=== PATIENT | female | born 1995 | race Caucasian/White ===

== ENCOUNTER 2016-07-29 09:00 | Inpatient (IN) | payer SELFPAY ==
[~2016-07-29] VITALS: Ht 167.6 cm; Wt 92.0 kg
[2016-07-29 09:52] VITALS: Ht 167.6 cm; Wt 92.0 kg
[2016-07-29 09:53] VITALS: BP 121/72; PULSE 100; RESP 18
[2016-07-29] MEDS ORDERED: OXYTOCIN 30 UNITS/LR 500 ML IV PRN (10:00)
[2016-07-29] MEDS ORDERED: CARBOPROST 250 MCG INJ IM PRN (10:00)
[2016-07-29] MEDS ORDERED: MISOPROSTOL 200 MCG TAB PR PRN (10:00)
[2016-07-29] MEDS ORDERED: METHYLERGONOVINE 0.2 MG INJ IM PRN (10:00)
[2016-07-29] MEDS ORDERED: LIDOCAINE 1% (MPF) 30 ML INJ INJ PRN (10:00)
[2016-07-29] MEDS ORDERED: IBUPROFEN 600 MG TAB PO PRN (10:00)
[2016-07-29] MEDS ORDERED: BUTORPHANOL 2 MG INJ IV PRN ×2 (10:00)
[2016-07-29] MEDS ORDERED: PREN1TAB62 PO (10:02)
[2016-07-29 10:11] LABS: BASOPHILS % 0.4 % (0.0-2.0); EOSINOPHILS # 0.1 10^3/ul (0.0-0.5); EOSINOPHILS % 1.2 % (0.0-7.0); HEMATOCRIT 37.5 % (37.0-47.0); HEMOGLOBIN 12.9 g/dl (12.0-16.0); LYMPHOCYTES # 1.9 10^3/ul (0.8-2.9); LYMPHOCYTES % 19.3 % (15.0-51.0); MEAN CORPUSCULAR HEMOGLOBIN 33.1 pg (29.0-33.0); MEAN CORPUSCULAR HGB CONC 34.3 g/dl (32.0-37.0); MEAN CORPUSCULAR VOLUME 96.6 fl (82.0-101.0); MEAN PLATELET VOLUME 9.9 fl (7.4-10.4); MONOCYTE # 0.8 10^3/ul (0.3-0.9); MONOCYTES % 8.3 % (0.0-11.0); NEUTROPHIL # 7.1 10^3/ul (1.6-7.5); NEUTROPHILS % 70.8 % (39.0-77.0); PLATELET COUNT 165 10^3/UL (140-440); RED BLOOD COUNT 3.89 10^6/ul (4.20-5.40); RED CELL DISTRIBUTION WIDTH 12.7 % (11.5-14.5)
[2016-07-29 10:15] LABS: CONDITION 1
[2016-07-29 10:19] LABS: INR 0.9; PROTIME 12.1 Sec (12.2-14.2); PT RATIO 0.9
[2016-07-29 10:20] LABS: PARTIAL THROMBOPLASTIN TIME 26.2 Sec (25.0-35.0)
[2016-07-29] MEDS ORDERED: AMPICILLIN 2 GM/NS (PMX) 100 ML IVPB ONE (10:30)
[2016-07-29] MEDS ORDERED: AMPICILLIN 2 GM/NS (PMX) 100 ML ONE (10:42)
[2016-07-29] MEDS: LACTATED RINGER'S 1,000 ML IV SCH ×2 (10:46→23:25)
--- NOTE | 2016-07-29 11:43 | RADRPT ---
PROCEDURE: Real Time Sonogram. 07/29/2016 11:29 a.m. CLINICAL INDICATION: Late care. TECHNIQUE: This procedure was performed on a high-resolution real time Unit using a endovaginal pr obe. COMPARISON: No. FINDINGS: Presentation: Cephalic presentation. Cervical Length: Not measured.Placental Location: Anterior.Placental Previa: No. Body limb and cardiac motion: Yes.Heart rate: 136 beats per minute. The stomach, skull and ventricles are unremarkable. The other anatomy is not evaluated. sex: Amniotic fluid volume:Normal. Measured data: BPD:9.2 cm37 weeks 3 days HC:34.8 cm40 weeks 3 days AC:33.6 cm37 weeks 4 days FC:7.5 cm38 weeks 4 days AUA:38 weeks 4 daysplus or minus 2 weeks 5 days JENN (AUA):08/08/2016. Serial scan estimated menstrual age: Calculated. weight: 3293 g plus/minus 508 g 22% Endovaginal imaging utilized: Yes. . Additional findings: No. IMPRESSION: See above RPTAT:AAJJ Physician Dennise Date Time Electronically viewed and signed by Physician Dennise on 07/29/2016 11:43 JM/
[2016-07-29] MEDS ORDERED: LACTATED RINGER'S 1,000 ML IV PRN (12:00)
[2016-07-29] MEDS ORDERED: MISOPROSTOL 25 MCG CAPSULE PO STA (13:02)
[2016-07-29] MEDS: MISOPROSTOL 25 MCG CAPSULE PO SCH ×4 (14:21→22:13)
[2016-07-29] MEDS: AMPICILLIN 1 GM/NS (PMX) 50 ML IVPB SCH ×3 (15:36→21:00)
[2016-07-30] MEDS: AMPICILLIN 1 GM/NS (PMX) 50 ML IVPB SCH ×6 (00:42→23:04)
[2016-07-30] MEDS: LACTATED RINGER'S 1,000 ML IV SCH ×3 (01:54→15:08)
[2016-07-30] MEDS: MISOPROSTOL 25 MCG CAPSULE PO SCH ×4 (02:27→10:49)
--- NOTE | 2016-07-30 03:22 | HP ---
DATE OF ADMISSION: 07/29/2016 HISTORY OF PRESENT ILLNESS: Ms. Anish Riddle is a 20-year-old 1, para 0 , intrauterine at 40 weeks and 5 days gestational age, who was admitted yesterday for post-EDC induction. She is currently on Cytotec regimen for cervical ripening. She currently denies any vaginal bleeding or discharge. Her care took place initially in [place] where she transferred her care to [facility] at approximately 36 weeks' gestation. She was also treated with RhoGAM on 07/08/2016 secondary to Rh negative. By ultrasound that she had in the [place], the fetus has bilateral hydronephrosis where a evaluation will be called after delivery. PAST MEDICAL HISTORY: None. MEDICATIONS: vitamins. PAST SURGICAL HISTORY: None. OBSTETRIC HISTORY: Primigravid. GYNECOLOGIC HISTORY: 11, regular 3 to 4 days. Denies any sexually transmitted disease. Sexually active with 1 partner. SOCIAL HISTORY: Denies any smoking, drugs, or alcohol. FAMILY HISTORY: None. PHYSICAL EXAMINATION: HEENT: Within normal. LUNGS: CTA bilateral. CARDIOVASCULAR: S1, S2, regular rhythm. ABDOMEN: Gravid, nontender. Negative CVA bilateral. EXTREMITIES: Negative edema. No calf tenderness. PELVIC: Vaginal exam currently 2, 40, -3 station. heart tracing category 1. Tocometer irregular contractions. ASSESSMENT: A 20-year-old 1, para 0, intrauterine at 40 weeks and 5 days gestational age, Rh negative, GBS positive, admitted for post- EDC induction. PLAN: Continue the Cytotec regimen followed by Pitocin. Dictated By: JODY PATEL/LILY Conf#: [id number] DID#: [id number] AISSATOU
[2016-07-30] MEDS ORDERED: OXYTOCIN 30 UNITS/LR 500 ML IV SCH (17:30)
[2016-07-31] MEDS: LACTATED RINGER'S 1,000 ML IV SCH (00:20)
[2016-07-31] MEDS ORDERED: FENTAnyl 2MCG/ML-ROPIV 0.2% 100 ML ONE (02:52)
[2016-07-31] MEDS: AMPICILLIN 1 GM/NS (PMX) 50 ML IVPB SCH ×2 (03:13→06:21)
[2016-07-31] MEDS ORDERED: ONDANSETRON 4 MG INJ IV PRN (03:30)
[2016-07-31] MEDS ORDERED: DIPHENHYDRAMINE 50 MG INJ IV PRN (03:30)
[2016-07-31] MEDS ORDERED: NALOXONE (0.4 MG/ML) INJ IV PRN (03:30)
[2016-07-31] MEDS ORDERED: FENTAnyl 2MCG/ML-ROPIV 0.2% 100 ML BAG EPI SCH (03:30)
[2016-07-31] MEDS ORDERED: LACTATED RINGER'S 1,000 ML IV* SCH (06:58)
--- NOTE | 2016-07-31 06:58 | LDN ---
Date/Time of Note Date/Time of Note DATE: 07/31/16 TIME: 06:55 Delivery Summary VAVD secondary to maternal exhuastion at plust 3 statation 2 pull, total 25 seconds with no complication Assisted Vaginal Delivery: Vacuum Placenta Delivered: Spontaneously, Intact & Complete Meconium: none Perineum intact?: No Perineal laceration: 2 Perineal laceration repair: 2nd degree perineal laceration repair with 2-0 and 3-0 chromic Anesthesia type: Epidural Estimated blood loss: 200 Sponge & Needle done & correct: Yes All needle counts correct: Yes Any foreign bodies felt in the: No Problems: Infant Delivery Information Sex Infant Sex: male Apgars 1 Minute: 8 5 Minute: 9 Suctioning Nose & mouth suctioned at adama: No Delee suction performed: No Umbilical Cord Umbilical cord with: 3 Vessels Cord presentations: nuchal cord Nuchal cord present X: 1 Cord Blood was obtained: Yes JODY BRUNNER MD Jul 31, 2016 06:57
[2016-07-31] MEDS ORDERED: METHYLERGONOVINE 0.2 MG INJ IM PRN ×2 (07:00→10:30)
[2016-07-31] MEDS ORDERED: OXYTOCIN 30 UNITS/LR 500 ML IV PRN ×2 (07:00→10:30)
[2016-07-31] MEDS ORDERED: CARBOPROST 250 MCG INJ IM PRN ×2 (07:00→10:30)
[2016-07-31] MEDS ORDERED: MISOPROSTOL 200 MCG TAB PR PRN ×2 (07:00→10:30)
[2016-07-31] MEDS ORDERED: LANOLIN 7 GM TUBE TOP PRN (10:30)
[2016-07-31] MEDS ORDERED: ACETAMINOPHEN 325 MG TAB PO PRN (10:30)
[2016-07-31] MEDS ORDERED: ACETAMINOPHEN/CODEINE #3 TAB PO PRN (10:30)
[2016-07-31] MEDS: IBUPROFEN 800 MG TAB PO SCH ×3 (11:35→23:27)
[2016-07-31] MEDS: LACTATED RINGER'S 1,000 ML IV* SCH ×2 (11:35→18:03)
[2016-07-31] MEDS ORDERED: BENZOCAINE 20% 56 ML SPRAY TOP PRN (13:00)
[2016-07-31] MEDS ORDERED: WITCH HAZEL/GLYCERIN PAD PR PRN (13:00)
[2016-07-31 16:00] VITALS: BP 103/59; PULSE 72; RESP 19
[2016-07-31 19:50] VITALS: BP 96/48; PULSE 91; RESP 18
[2016-07-31] MEDS: SENNA/DOCUSATE NA (8.6MG/50MG) TAB PO SCH (20:49)
[2016-08-01 04:10] VITALS: BP 108/59; PULSE 73; RESP 18
[2016-08-01] MEDS: IBUPROFEN 800 MG TAB PO SCH ×3 (05:40→17:56)
[2016-08-01 08:16] LABS: BASOPHILS % 0.3 % (0.0-2.0); EOSINOPHILS # 0.2 10^3/ul (0.0-0.5); HEMATOCRIT 33.3 % (37.0-47.0); HEMOGLOBIN 11.5 g/dl (12.0-16.0); LYMPHOCYTES # 2.2 10^3/ul (0.8-2.9); LYMPHOCYTES % 20.1 % (15.0-51.0); MEAN CORPUSCULAR HGB CONC 34.5 g/dl (32.0-37.0); MEAN CORPUSCULAR VOLUME 95.7 fl (82.0-101.0); MEAN PLATELET VOLUME 12.4 fl (7.4-10.4); MONOCYTE # 0.7 10^3/ul (0.3-0.9); MONOCYTES % 6.1 % (0.0-11.0); NEUTROPHIL # 7.6 10^3/ul (1.6-7.5); NEUTROPHILS % 70.7 % (39.0-77.0); PLATELET COUNT 142 10^3/UL (140-415); RED BLOOD COUNT 3.48 10^6/ul (4.20-5.40); RED CELL DISTRIBUTION WIDTH 12.8 % (11.5-14.5); WHITE BLOOD COUNT 10.8 10^3/ul (4.8-10.8)
[2016-08-01 08:30] VITALS: BP 102/59; PULSE 81; RESP 19
[2016-08-01] MEDS: SENNA/DOCUSATE NA (8.6MG/50MG) TAB PO SCH ×2 (09:51→20:45)
[2016-08-01] MEDS: LACTATED RINGER'S 1,000 ML IV* SCH ×2 (12:18→17:56)
[2016-08-01 16:30] VITALS: BP 109/58; PULSE 78; RESP 16
--- NOTE | 2016-08-01 19:28 | PD.PPDC ---
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
[2016-08-01 19:30] VITALS: BP 107/63; PULSE 77; RESP 22
[2016-08-02] MEDS: IBUPROFEN 800 MG TAB PO SCH ×3 (00:21→11:47)
[2016-08-02 03:50] VITALS: BP 98/54; PULSE 75; RESP 18
--- NOTE | 2016-08-02 06:16 | DS ---
DATE OF ADMISSION: 07/29/2016 DATE OF DISCHARGE: 08/02/2016 PRIMARY DIAGNOSIS: A 20-year-old 1, para 0, intrauterine at 40 weeks and 5 days g estational age, Rh negative, GBS positive, admitted for post-EDC induction. PROCEDURE: Normal spontaneous vaginal delivery with Cytotec/Pitocin. CONDITION ON DISCHARGE: Stable. ACTIVITY: None per vagina, no heavy lifting x6 weeks. DIET: Regular. MEDICATIONS ON DISCHARGE: Motrin. DISCHARGE SUMMARY: Ms. Janessa Palmer is a 20-year-old 1, para 1, status post normal spontaneou s vaginal delivery on 07/29/2016. She had a viable male, Apgars of 8 and 9 respectively at 1 and 5 minutes, with a second-degree perineal laceration repair. She had an uneventful day 1. She will be discharged on day 2. She is ambulating, tolerating a diet, positive flatulen ce, positive bowel movements. She will follow up in the office in 3 weeks for /postop car e. Dictated By: JODY PATEL/LILY Conf#: [id number] DID#: [id number]
[2016-08-02 07:40] VITALS: BP 110/71; PULSE 90; RESP 16
[2016-08-02] MEDS: SENNA/DOCUSATE NA (8.6MG/50MG) TAB PO SCH (08:44)
== END 2016-08-02 12:40 | disposition home or self-care (01) | DRG 775 ==
LOC: L-D 09:07 → PP1 07-31 08:46
PROVIDERS: ADMIT Obstetrics & Gynecology; ATTEND Obstetrics & Gynecology
PROC: 10E0XZZ Delivery of Products of Conception, External Approach (ICD-10-PCS; principal; 2016-07-31)
PROC: 0KQM0ZZ Repair Perineum Muscle, Open Approach (ICD-10-PCS; 2016-07-31)
DX: O48.0 Post-term pregnancy (principal); O69.81X0 Labor and delivery complicated by cord around neck, without compression, not applicable or unspecified; Z3A.40 40 weeks gestation of pregnancy; O70.1 Second degree perineal laceration during delivery; Z37.0 Single live birth
CPT/HCPCS: 62319; 76815; 85025; 85610; 85730; 86592; 86850; 86870; 86885; 86900; 86901; 87340; 99464; J0290; J2590; J2790; J3010; J7120